=== PATIENT | female | born 1990 | race African-American/Black ===

== ENCOUNTER 2018-02-10 05:26 | Day surgery (SDC) | payer MEDICAID ==
[~2018-02-10] VITALS: Ht 160 cm; Wt 55.3 kg
[~2018-02-10 05:26] MED LIST: LACTATED RINGERS 1,000 ML IV SCH
[2018-02-10] MEDS ORDERED: FENTANYL CITRATE/PF 50MCG/ML 2ML VIAL ONE (07:26)
[2018-02-10 07:27] LABS: UCG SCREEN NEGATIVE
[2018-02-10] MEDS ORDERED: LIDOCAINE HCL/PF 1% 10 MG/ML 5ML VIAL ONE (07:27)
[2018-02-10] MEDS ORDERED: MIDAZOLAM HCL 2 MG/2 ML VIAL ONE (07:27)
[2018-02-10] MEDS ORDERED: PROPOFOL 200MG/20ML VIAL IV ONE ×2 (07:27→08:03)
[2018-02-10] MEDS ORDERED: CEFAZOLIN SODIUM 1000MG/VIAL ONE (07:28)
[2018-02-10] MEDS ORDERED: SODIUM CHLORIDE 0.9% 10ML VIAL ONE (07:28)
[2018-02-10] MEDS ORDERED: POTASSIUM IODIDE/IODINE 20ML TOP SCH (08:00)
[2018-02-10] MEDS ORDERED: FERRIC SUBSULFATE SOLN 8GM TOP ONE (08:00)
[2018-02-10] MEDS ORDERED: ONDANSETRON HCL 4MG/2ML INJ ONE (08:35)
[2018-02-10] MEDS ORDERED: METOCLOPRAMIDE HCL 10MG/2ML VIAL ONE (08:36)
[2018-02-10] MEDS ORDERED: ONDANSETRON HCL 4MG/2ML INJ IV PRN (09:00)
[2018-02-10] MEDS ORDERED: MEPERIDINE HCL/PF 25MG/ML CPJ IV PRN (09:15)
[2018-02-10 10:09] VITALS: BP 110/68
== END 2018-02-10 11:00 | disposition home or self-care (01) ==
LOC: OR 05:26
PROVIDERS: ATTEND Obstetrics & Gynecology
DX: N72 Inflammatory disease of cervix uteri (principal); F32.9 Major depressive disorder, single episode, unspecified; Z79.899 Other long term (current) drug therapy; Z98.890 Other specified postprocedural states
CPT/HCPCS: 57520; 81025; 88305; 88307; A4216; J0690; J2175; J2250; J2405; J2765; J3010; J3490; J2704; J7030